=== PATIENT | male | born 1940 | race Caucasian/White ===

== ENCOUNTER → 2017-08-05 | Outpatient (CLI) | payer MEDICARE ==
[~2017-08-05] MED LIST: ATOR10 PO; Alph-E-Mixed400 UNIT; Cinnamon500 MG PO; Coumadin5 MG PO; DIGO.25 PO; GEMF600 PO; GLIP5ER PO; INSULANPEN SC; LISI20 PO; Lantus100 UNIT/1 SC; METF500C; METO50ER PO; NIAC500 PO; SUPER B COMPLE1 EACH PO; TIROSINT50 MCG PO; VITAMIN D32000 UNI1 PO; Vitamin C1000 M1 PO; WARF1; WARF5 PO
== END | disposition home or self-care (01) ==
LOC: PLD 10:10 → LAB SHORT 10:10
DX: D48.5 Neoplasm of uncertain behavior of skin (principal)
CPT/HCPCS: 88305

== ENCOUNTER → 2018-04-13 | Outpatient (CLI) | payer MEDICARE | END | disposition home or self-care (01) | LOC: LAB SHORT 16:49 → LAB EV 16:49 | DX: R31.0 Gross hematuria (principal) | CPT/HCPCS: 87086 ==

== ENCOUNTER → 2021-05-08 | Outpatient (CLI) | payer MEDICARE | END | disposition home or self-care (01) | LOC: LAB SHORT 12:00 | DX: D48.5 Neoplasm of uncertain behavior of skin (principal) | CPT/HCPCS: 88305 ==